=== PATIENT | female | born 1980 | race African-American/Black ===

== ENCOUNTER 2017-10-05 03:15 | Emergency (ER) | payer OTHER ==
[~2017-10-05] VITALS: Ht 165.1 cm; Wt 70.0 kg
[2017-10-05] MEDS ORDERED: KEFLEX500 M1 PO (04:01)
[2017-10-05 04:36] VITALS: BP 130/64
== END 2017-10-05 04:24 | disposition home or self-care (01) | DRG 603 ==
LOC: ED 03:34
DX: L01.00 Impetigo, unspecified (principal)

== ENCOUNTER 2018-07-14 09:00 | Emergency (ER) | payer OTHER ==
[~2018-07-14] VITALS: Ht 165.1 cm; Wt 63.6 kg
[~2018-07-14 09:00] MED LIST: KEFLEX500 M1 PO
[2018-07-14] MEDS ORDERED: AMOXICILLIN500 MG PO (09:22)
[2018-07-14 09:24] VITALS: BP 110/82
== END 2018-07-14 09:28 | disposition home or self-care (01) ==
LOC: ED 09:00
DX: L08.9 Local infection of the skin and subcutaneous tissue, unspecified (principal); R22.0 Localized swelling, mass and lump, head; K13.79 Other lesions of oral mucosa

== ENCOUNTER 2018-07-25 07:32 | Emergency (ER) | payer OTHER ==
[~2018-07-25] VITALS: Ht 165.1 cm; Wt 61.0 kg
[~2018-07-25 07:32] MED LIST changes: +AMOXICILLIN500 MG PO
[2018-07-25] MEDS ORDERED: ACYCLOVIR400 MG PO (07:55)
[2018-07-25] MEDS ORDERED: CEPHALEXIN500 M1 PO (07:55)
[2018-07-25 08:17] VITALS: BP 125/76
== END 2018-07-25 08:24 | disposition home or self-care (01) ==
LOC: ED 07:32
DX: B00.1 Herpesviral vesicular dermatitis (principal); K13.0 Diseases of lips

== ENCOUNTER 2018-10-01 08:45 | Emergency (ER) | payer SELFPAY ==
[~2018-10-01] VITALS: Ht 165.1 cm; Wt 60.0 kg
[~2018-10-01 08:45] MED LIST changes: +ACYCLOVIR400 MG PO; +CEPHALEXIN500 M1 PO
[2018-10-01] MEDS ORDERED: VOLTAREN - GENE75 MG PO (09:13)
[2018-10-01 09:20] VITALS: BP 113/83
== END 2018-10-01 09:25 | disposition home or self-care (01) | DRG 558 ==
LOC: ED 08:45
DX: M77.11 Lateral epicondylitis, right elbow (principal)

== ENCOUNTER 2018-10-04 12:42 | Emergency (ER) | payer SELFPAY ==
[~2018-10-04] VITALS: Ht 165.1 cm; Wt 60.0 kg
[~2018-10-04 12:42] MED LIST changes: +VOLTAREN - GENE75 MG PO
[2018-10-04] MEDS ORDERED: NAPROSYN500 MG PO (14:13)
[2018-10-04 14:25] VITALS: BP 117/56
== END 2018-10-04 14:25 | disposition home or self-care (01) | DRG 563 ==
LOC: ED 12:42
DX: S53.401A Unspecified sprain of right elbow, initial encounter (principal); X50.0XXA Overexertion from strenuous movement or load, initial encounter; Y93.89 Activity, other specified; Y92.89 Other specified places as the place of occurrence of the external cause; Y99.0 Civilian activity done for income or pay

== ENCOUNTER 2020-03-31 18:20 | Emergency (ER) | payer OTHER ==
[~2020-03-31 18:20] MED LIST changes: +NAPROSYN500 MG PO
[2020-03-31] MEDS ORDERED: METRONIDAZOLE500 MG PO (18:35)
[2020-03-31] MEDS ORDERED: BACTROBAN TOP (19:29)
[2020-03-31] MEDS ORDERED: KEFLEX500 MG PO (19:29)
[2020-03-31 19:39] VITALS: BP 121/72
== END 2020-03-31 19:39 | disposition home or self-care (01) ==
LOC: ED 18:20
DX: L30.9 Dermatitis, unspecified (principal); L08.9 Local infection of the skin and subcutaneous tissue, unspecified

== ENCOUNTER 2020-11-03 17:46 | Emergency (ER) | payer OTHER ==
[~2020-11-03] VITALS: Ht 165.1 cm; Wt 65.0 kg
[~2020-11-03 17:46] MED LIST changes: +BACTROBAN TOP; +KEFLEX500 MG PO; +METRONIDAZOLE500 MG PO
[2020-11-03 20:01] LABS: URINE BILIRUBIN - DIPSTICK NEGATIVE (NEGATIVE); URINE BLOOD DIPSTICK TRACE-INTACT (NEGATIVE); URINE COLOR YELLOW; URINE GLUCOSE - DIPSTICK NEGATIVE (NEGATIVE); URINE KETONE NEGATIVE (NEGATIVE); URINE NITRITE - DIPSTICK NEGATIVE (Negative); URINE PH 6.5 (4.5-8.0); URINE PROTEIN - DIPSTICK NEGATIVE (NEG-TRACE); URINE SPECIFIC GRAVITY 1.025; URINE UROBILINOGEN - DIPSTICK 0.2 E.U./dL (0.2)
[2020-11-03 20:04] LABS: URINE LEUK ESTERASE MODERATE (NEGATIVE)
[2020-11-03 20:08] LABS: URINE WBC 20-50 WBC/hpf (0-5)
[2020-11-03 20:09] LABS: URINE SQUAMOUS EPITHELIAL CELL MODERATE EPI/hpf (0-FEW)
[2020-11-03] MEDS ORDERED: METRONIDAZOL500 MG PO (22:28)
[2020-11-03 22:50] VITALS: BP 119/77
== END 2020-11-03 22:50 | disposition home or self-care (01) ==
LOC: ED 17:46
PROVIDERS: Family Medicine
DX: A59.00 Urogenital trichomoniasis, unspecified (principal)

== ENCOUNTER 2020-12-26 12:20 | Emergency (ER) | payer OTHER ==
[~2020-12-26] VITALS: Ht 165.1 cm; Wt 60.0 kg
[~2020-12-26 12:20] MED LIST changes: +METRONIDAZOL500 MG PO
[2020-12-26 13:08] LABS: URINE BILIRUBIN - DIPSTICK NEGATIVE (NEGATIVE); URINE BLOOD DIPSTICK NEGATIVE (NEGATIVE); URINE COLOR YELLOW; URINE GLUCOSE - DIPSTICK NEGATIVE (NEGATIVE); URINE KETONE NEGATIVE (NEGATIVE); URINE NITRITE - DIPSTICK NEGATIVE (Negative); URINE PROTEIN - DIPSTICK NEGATIVE (NEG-TRACE); URINE SPECIFIC GRAVITY >=1.030; URINE UROBILINOGEN - DIPSTICK 0.2 E.U./dL (0.2)
[2020-12-26 13:16] LABS: URINE LEUK ESTERASE SMALL (NEGATIVE)
[2020-12-26 13:22] LABS: URINE TRICHOMONAS MANY hpf
[2020-12-26] MEDS ORDERED: DOXYCYCLINE100 MG PO (13:28)
[2020-12-26 13:55] VITALS: BP 122/87
== END 2020-12-26 13:55 | disposition home or self-care (01) ==
LOC: ED 12:20
DX: A59.01 Trichomonal vulvovaginitis (principal)
CPT/HCPCS: J0561

== ENCOUNTER 2021-02-14 22:01 | Emergency (ER) | payer OTHER ==
[~2021-02-14 22:01] MED LIST changes: +DOXYCYCLINE100 MG PO
[2021-02-14] MEDS ORDERED: SILVADENE1 % EX (22:40)
[2021-02-14] MEDS ORDERED: LORTAB 1010 MG PO (22:40)
[2021-02-14 23:10] VITALS: BP 119/79
== END 2021-02-14 23:10 | disposition home or self-care (01) ==
LOC: ED 22:01
DX: T23.251A Burn of second degree of right palm, initial encounter (principal); T31.0 Burns involving less than 10% of body surface; X15.3XXA Contact with hot saucepan or skillet, initial encounter; Y93.G3 Activity, cooking and baking; Y92.000 Kitchen of unspecified non-institutional (private) residence as the place of occurrence of the external cause

== ENCOUNTER 2021-02-24 | Emergency (ER) | payer OTHER ==
[~2021-02-24] MED LIST changes: +LORTAB 1010 MG PO; +SILVADENE1 % EX
[2021-02-24 21:53] LABS: URINE BILIRUBIN - DIPSTICK NEGATIVE (NEGATIVE); URINE BLOOD DIPSTICK TRACE-INTACT (NEGATIVE); URINE COLOR YELLOW; URINE GLUCOSE - DIPSTICK NEGATIVE (NEGATIVE); URINE KETONE NEGATIVE (NEGATIVE); URINE PROTEIN - DIPSTICK NEGATIVE (NEG-TRACE); URINE SPECIFIC GRAVITY >=1.030; URINE UROBILINOGEN - DIPSTICK 0.2 E.U./dL (0.2)
[2021-02-24 21:55] LABS: URINE LEUK ESTERASE MODERATE (NEGATIVE); URINE NITRITE - DIPSTICK NEGATIVE (Negative)
[2021-02-24 22:02] LABS: URINE TRICHOMONAS MODERATE hpf
[2021-02-24] MEDS ORDERED: METRONIDAZOL500 MG PO (23:10)
== END 2021-02-24 23:23 | disposition home or self-care (01) ==
PROVIDERS: Family Medicine
DX: A59.01 Trichomonal vulvovaginitis (principal)

== ENCOUNTER 2021-11-07 14:34 | Emergency (ER) | payer OTHER ==
[~2021-11-07] VITALS: Ht 165.1 cm; Wt 85.0 kg
[2021-11-07] MEDS ORDERED: ZOFRAN4 M1 PO (16:29)
[2021-11-07 16:48] VITALS: BP 117/67
== END 2021-11-07 16:55 | disposition home or self-care (01) ==
LOC: ED 14:34
DX: U07.1 COVID-19 (principal)

== ENCOUNTER 2022-01-09 04:58 | Emergency (ER) | payer OTHER ==
[~2022-01-09] VITALS: Ht 165.1 cm; Wt 59.0 kg
[~2022-01-09 04:58] MED LIST changes: +ZOFRAN4 M1 PO
[2022-01-09 05:09] VITALS: BP 111/75
[2022-01-09 05:31] VITALS: BP 106/65
[2022-01-09 06:00] VITALS: BP 107/77
[2022-01-09 06:03] LABS: HEMATOCRIT 38.5 % (37.0-47.0); HEMOGLOBIN 12.7 g/dl (12.0-16.0); IMMATURE GRANULOCYTES 0.1 % (0.0-5.0); MEAN CELL VOLUME 89.7 fL CALC (80.0-100.0); MEAN CORPUSCULAR HGB 29.6 pG CALC (26.0-32.0); NEUT# 5.19 thou/uL (2.00-7.15); RED BLOOD COUNT 4.29 mill/uL (4.20-5.60); RED CELL DISTRI WIDTH 12.9 % (11.5-15.5)
[2022-01-09 06:10] LABS: ALBUMIN 4.3 g/dL (3.2-5.0); ALKALINE PHOSPHATASE 68 u/l (38-126); ANION GAP 11 (6-22 (CALC)); BILIRUBIN, TOTAL 0.5 mg/dL (0.0-1.4); BUN 16 mg/dL (7-17); BUN/CREATININE RATIO 23 (12-20 (CALC)); CARBON DIOXIDE 27 mmol/l (22-30); CHLORIDE 104 mmol/l (95-108); CREATININE 0.7 mg/dL (0.5-1.0); GFR > 60 ML/MIN (>=60 (CALC)); GFR FOR AFR.AMER. > 60 ML/MIN (>=60 (CALC)); POTASSIUM 3.9 mmol/l (3.5-5.1); SGOT/AST 22 u/l (14-36); SODIUM 139 mmol/l (137-146); TOTAL PROTEIN 7.7 g/dL (6.3-8.2)
[2022-01-09 06:30] VITALS: BP 107/74
[2022-01-09] MEDS ORDERED: MEDDOSEPAK PO (06:31)
[2022-01-09] MEDS ORDERED: VENTOLIN HFA IN (06:31)
[2022-01-09] MEDS ORDERED: ZPAK PO (06:31)
[2022-01-09 06:36] VITALS: BP 107/74
== END 2022-01-09 06:43 | disposition home or self-care (01) ==
LOC: ED 04:58
DX: J40 Bronchitis, not specified as acute or chronic (principal); Z86.16 Personal history of COVID-19

== ENCOUNTER 2023-05-29 08:56 | Emergency (ER) | payer SELFPAY ==
[~2023-05-29] VITALS: Ht 165.1 cm; Wt 73.0 kg
[~2023-05-29 08:56] MED LIST changes: +MEDDOSEPAK PO; +VENTOLIN HFA IN; +ZPAK PO
[2023-05-29 09:00] VITALS: BP 117/92
[2023-05-29 09:20] VITALS: BP 116/76
[2023-05-29 09:40] VITALS: BP 120/80
[2023-05-29 10:00] VITALS: BP 118/77
[2023-05-29] MEDS ORDERED: AMOXICILLIN500 MG PO (10:09)
[2023-05-29 10:12] VITALS: BP 118/77
== END 2023-05-29 10:24 | disposition home or self-care (01) | DRG 153 ==
LOC: ED 08:56
DX: J06.9 Acute upper respiratory infection, unspecified (principal); Z20.822 Contact with and (suspected) exposure to COVID-19

== ENCOUNTER 2023-12-18 05:41 | Emergency (ER) | payer SELFPAY ==
[~2023-12-18] VITALS: Ht 165.1 cm; Wt 65.0 kg
[2023-12-18] VITALS (7 sets, daily range): BP systolic 101–130; BP diastolic 74–98
[~2023-12-18 05:41] MED LIST changes: +DOXY-CAPS100 MG PO
[2023-12-18] MEDS ORDERED: AZITHROMYCIN 250 MG/TAB PO ONE (06:40)
[2023-12-18] MEDS ORDERED: VIBRAMYCIN100 M2 PO (06:43)
== END 2023-12-18 08:10 | disposition home or self-care (01) | DRG 759 ==
LOC: ED 05:41
DX: A64 Unspecified sexually transmitted disease (principal)

== ENCOUNTER 2024-06-18 11:50 | Emergency (ER) | payer SELFPAY ==
[~2024-06-18] VITALS: Ht 165.1 cm; Wt 59.0 kg
[~2024-06-18 11:50] MED LIST changes: +VIBRAMYCIN100 M2 PO
[2024-06-18 11:57] VITALS: BP 108/82
[2024-06-18 12:15] VITALS: BP 129/96
[2024-06-18 12:30] VITALS: BP 151/96
[2024-06-18] MEDS ORDERED: TRIAMCINOLON0.11 EX (12:39)
[2024-06-18] MEDS ORDERED: MEDDOSEPAK PO (12:39)
[2024-06-18 12:44] VITALS: BP 151/96
== END 2024-06-18 12:45 | disposition home or self-care (01) | DRG 125 ==
LOC: ED 11:50
DX: H02.849 Edema of unspecified eye, unspecified eyelid (principal); R22.0 Localized swelling, mass and lump, head

== ENCOUNTER 2025-01-08 18:49 | Emergency (ER) | payer SELFPAY ==
[~2025-01-08] VITALS: Ht 165.1 cm; Wt 68.0 kg
[~2025-01-08 18:49] MED LIST changes: +TRIAMCINOLON0.11 EX
[2025-01-08] MEDS ORDERED: NAPROXEN 250 MG/TAB PO ONE (19:25)
[2025-01-08] MEDS ORDERED: NAPROXEN500 MG PO (19:54)
[2025-01-08 20:04] VITALS: BP 128/81
== END 2025-01-08 20:05 | disposition home or self-care (01) | DRG 605 ==
LOC: ED 18:49
DX: S90.31XA Contusion of right foot, initial encounter (principal); W20.8XXA Other cause of strike by thrown, projected or falling object, initial encounter